=== PATIENT | female | born 1965 | race Hispanic/Latino ===

== ENCOUNTER 2018-05-28 20:49 | Emergency (ER) | payer SELFPAY ==
[~2018-05-28] VITALS: Ht 167.6 cm; Wt 74.8 kg
[2018-05-28] MEDS ORDERED: KETOROLAC TROMETHAMINE 30 MG/ML VIAL IV STA (21:17)
[2018-05-28] MEDS ORDERED: ONDANSETRON HCL 4 MG ORAL DISINTEGRATING TAB PO ONE (21:30)
[2018-05-28] MEDS ORDERED: ZOFRAN8 MG PO (21:56)
[2018-05-28] MEDS ORDERED: TYLENOL WITH C1 EACH PO (21:56)
[2018-05-28] MEDS ORDERED: FLOMAX0.4 MG PO (21:56)
[2018-05-28] MEDS ORDERED: KETOROLAC TROME10 MG PO (21:56)
== END 2018-05-28 22:18 | disposition home or self-care (01) ==
LOC: FSED 20:49
DX: R10.9 Unspecified abdominal pain (principal); R11.2 Nausea with vomiting, unspecified; M54.5 Low back pain; R31.9 Hematuria, unspecified; N20.1 Calculus of ureter; E78.5 Hyperlipidemia, unspecified; F17.210 Nicotine dependence, cigarettes, uncomplicated
CPT/HCPCS: 81003; 99283